=== PATIENT | female | born 1990 | race Caucasian/White ===

== ENCOUNTER → 2017-03-16 | Day surgery (SDC) | payer MEDICAID ==
[~2017-03-16] MED LIST: BUPIVACAINE/EPINEPHRINE 0.25% 50 ML VIAL ONE; KETOROLAC TROMETHAMINE 30 MG/ML (IVP) VIAL IV PUSH ONE; LACTATED RINGER'S 1000 ML INJ 1,000 ML ONE; MEPERIDINE HCL 25 MG/ML VIAL ONE; MIDAZOLAM HCL 2 MG/2 ML VIAL ONE; ONDANSETRON HCL 4 MG/2 ML VIAL IV PUSH ONE; PROPOFOL 200 MG/20 ML AMP IV ONE; TRIAMCINOLONE ACETONIDE 40 MG/ML VIAL ONE; ceFAZolin INJ 1,000 MG VIAL ONE
--- NOTE | 2017-03-16 11:00 | TN ---
cc: VIVEK BORREGO M.D. DATE OF SURGERY 03/16/2017 PREOPERATIVE DIAGNOSIS 1. 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 2. Right knee loose body. 3. Left knee chondromalacia of the patella POSTOPERATIVE DIAGNOSIS 1. Right knee medial and lateral meniscal tears. 2. Right knee chondromalacia of the patella grade 3A lateral facet and inferior pole. 3. Right knee patellofemoral instability. 4. Right knee osteochondral loose body. 5. Right knee suprapatellar plica large. 6. Left knee chondromalacia patella. PROCEDURE PERFORMED 1. Right knee arthroscopy with partial medial and lateral meniscectomies. 2. Right knee arthroscopic lateral retinacular release. 3. Right knee arthroscopic removal of loose body. 4. Right knee arthroscopic excision of a plica. 5. Left knee injection of local anesthetic and steroid. SURGEON Vivek Borrego MD ANESTHESIA General via laryngeal mask augmented by local infiltration BLOOD LOSS Minimal FLUID REPLACEMENT 600 cc of crystalloid COUNTS Correct DRAINS No drains were utilized. IMPLANTS No implants were placed. COMPLICATIONS There were no intraoperative complications. INDICATIONS FOR THE PROCEDURE Mrs. Lipscomb is a 27-year-old young lady who has been experiencing problems with chronic patellofemoral instability, as well as mechanical symptoms concerning for the possibility of entrapment of a loose body. She is being taken the operating room for arthroscopic debridement of the knee. She requested, while under anesthesia, to have the contralateral left knee injected with local anesthetic and steroid and we were able to accommodate this. As a result of her persistent symptoms in her left knee, she is being taken to the operating room for arthroscopic debridement of the knee. She was aware of the risks, benefits, potential complications and limitations of the procedure and full written informed consent was obtained. DESCRIPTION OF PROCEDURE After the patient was dentified in the holding area, she had correctly marked her right knee for surgery and left knee for injection and then she was given one gram of intravenous Ancef as prophylactic antibiotic. Please note that I had gone ahead and initialed on her knees as well that the right knee was for surgery and the left knee was for injection. At this time, she was taken to the operating room suite where we confirmed her correct knees one last time and then she was placed under general laryngeal mask anesthetic. At this time, attention was initially directed to the left knee after time-out was held confirming the left leg was the appropriate leg for the injection. The lateral aspect of the left knee was triple prepped with alcohol and then the left knee was then injected with 2 cc of Marcaine and 1 cc of Kenalog. She tolerated the injection without any evidence of bleeding and a Band-Aid was applied. Attention was now directed back to the right leg. A well-padded thigh-high tourniquet was applied on the right side and then her leg was prepped with alcohol and Hibiclens and she was draped in the normal standard fashion including the use of an impervious stockinette from the foot all the way up to the proximal tibia. It was at this point in time that there was a second time-out held confirming the right leg was the appropriate surgical site. The team was in agreement and the case was now begun again. Her leg was elevated and exsanguinated with an eddie wrap and the tourniquet was raised to 300 mm of Hg. Standard anteromedial and anterolateral joint line portals were established under direct vision. The joint had a small effusion that was evacuated and minimal blood was appreciated. The suprapatellar pouch had a large medial suprapatellar plica which was debrided. There was also extreme hypermobility of the patellofemoral joint where she was dislocatable laterally. I felt that in order improve her stability and to prevent the lateral subluxations from occurring that we would take down the latera retinaculum. The lateral retinaculum was clearly identified. It was quite tight and after a small amount of synovial tissue was debrided to improve its visualization, I went ahead and performed a lateral retinacular release with the underwater electrocautery. This had significantly improved the tracking of the patella and got rid of a great deal of the patellar shift. There was no evidence of any extreme instability after this was completed. The chondral loss, especially on the lateral facet and the inferior pole of patella, was treated with chondroplasty of the patella and this was likely the donor site for loose bodies that we would anticipate finding intraoperatively based on the radiographs. At this time the medial gutter was now explored. No loose bodies or significant synovitis was seen. The medial compartment was now entered. There was a tear seen on anterior horn of the medial meniscus. This was debrided with an oscillating shaver. The rest of the medial meniscus was stable to probing and would not sublux into the joint. I saw a relatively small osteochondral loose body in the medial compartment and I was able, suction/aspirated it without difficulty. The chondral surfaces on the femur and the tibia were both in good condition. At this time, the intercondylar notch was now explored. The anterior cruciate ligament was seen to be intact and stable with anterior drawer maneuvers. There were some hypertrophic changes seen around the posterior horn of the lateral meniscus, but at no point did it appear to have disrupted the lateral meniscus and the chondral surfaces appeared to be in good condition. At this time, the lateral compartment was now entered. There was a degenerative tear seen at the central portion of the lateral meniscus and this was debrided with an oscillating shaver. As I was debriding the more posterior aspect of the meniscus, what is very likely to be the most significant osteochondral loose body was identified. It measured closer to 2 mm x 4 mm and I was able to aspirate it directly. The lateral meniscus was stable after a partial meniscectomy was performed and the chondral surfaces in the lateral compartment were free of significant chondromalacia. At this time, I went ahead and suctioned decompressed the knee several times and inspected all the compartments and did not find any further pathology. There was no evidence of any oozing or bleeding despite the use of the tourniquet around the lateral retinacular release site. A fair amount of soft tissue swelling was appreciated subcutaneously as would be anticipated. At this time, I went ahead and suctioned decompressed the knee one final time. The portals were closed with 3-0 nylon simple sutures and then the portals were injected with 30 cc of quarter percent Marcaine with epinephrine and intraarticularly as well. The leg was dressed with Xeroform, 4x4s, ABDs and Eddie wrap. The tourniquet was let down. There was brisk return of capillary refill and she reestablished her palpable distal pulses very quickly. She was awoken from anesthesia and taken to recovery in stable condition. Appropriate postoperative orders have been written. Vivek Borrego MD Electronically Signed MD MATT Vyas/DJL /10:09 AM /10:38 AM MTDD
== END | disposition home or self-care (01) ==
LOC: ESDC 07:57
PROVIDERS: ATTEND Orthopaedic Surgery Sports Medicine
DX: S83.241A Other tear of medial meniscus, current injury, right knee, initial encounter (principal); S83.281A Other tear of lateral meniscus, current injury, right knee, initial encounter; M22.41 Chondromalacia patellae, right knee; M67.51 Plica syndrome, right knee; M22.42 Chondromalacia patellae, left knee
CPT/HCPCS: 01400; 20610; 29873; 29880; J0690; J1885; J2175; J2250; J2405; J3010; J3301; J7120